=== PATIENT | female | born 1985 | race Caucasian/White ===

== ENCOUNTER 2018-01-08 09:17 | Inpatient (IN) ==
--- OUTSIDE RECORDS SUMMARY | 2018-01-08 09:27 | External Medical Summary | Continuity of Care Document ---
:1985 Author Organization [facility] Address [address] [place], [place] [id number] Phone Care Team Providers Name Role Phone Abhi Burroughs MD Unavailable Unavailable Allergies, Adverse Reactions, Alerts Substance Reaction Severity Status Penicillins Hives Unknown Active MEPERIDINE HCL Hives Unknown Active Medications Medication Instructions Dosage Effective Dates Status Comments (start - stop) Rhophylac 1,500 unit - Active (300 mcg)/2 mL injection syringe ferrous sulfate 325 take 1 tablet by 325 MG - Active mg (65 mg iron) ORAL route 2 times tablet every day Vitamin Tab take 1 tablet by Not Available - Active oral route every day levothyroxine 50 mcg take 1 tablet by 50 MCG - Active tablet oral route every day Problems Condition Effective Dates (start - stop) Clinical Status Encntr screen for infections w sexl - mode of transmiss Encounter for screening for oth - infec/parastc diseases Encounter for suprvsn of normal - , first trimester Encounter For Other Specified - Screening 9 weeks gestation of - Endo, nutritional and metab diseases - comp preg, third tri Encounter for suprvsn of normal - , third trimester 28 weeks gestation of - Type O blood, Rh negative - Endo, nutritional and metab diseases - comp preg, second tri Encounter For Screening For - Malformations 20 weeks gestation of - Endo, nutritional and metab diseases - comp preg, second tri Encounter for suprvsn of normal - , second trimester 24 weeks gestation of - 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) w/o abn findings Pap Smear Screening, Cervix Personal history of endo, nutritional and metabolic disease Personal history of endo, nutritional and metabolic disease Encounter for suprvsn of normal - , second trimester 14 weeks gestation of - Encounter for suprvsn of normal - , second trimester 17 weeks gestation of - Encounter for suprvsn of normal - , second trimester 20 weeks gestation of - Encounter for suprvsn of normal - , third trimester 31 weeks gestation of - Irregular Menses - Active Active Procedures Procedure Date Unknown Results Test Name Date and Time Measure Units Reference Range Abnormal Flag Comments Unknown Advance Directives Directive Yes / No Effective Date File Name Unknown Encounters Encounter Practice Location Reason(s) Diagnoses Date Provider Care Team Description For Visit Members Juancarlos Huitron Encounter for Tavo-2 Madhav Referring In Womens suprvsn of normal 6-201 [place]. 700 Provider: [facility], , third 8 Medical [facility] Box [email or web address] weeks [facility], 1522, gestation of Dr [place] [id number] [place], 120, Hospital [place], Dr Tomy, [id number], [place], [facility] [id number] [place], [address]. tel: , [place]. tel: tel: [phone] Juancarlos Huitron Tavo-1 Madhav In Womens 2-201 [facility] 700 [facility], 8 Medical PO Box Center 1522, Sonu [place], 120, [place], [place], [id number], [place], [place] [id number] tel: , [place]. [id number] tel: [phone] [facility], nutritional Tavo-0 Madhav Referring In Womens and metab 7-201 [place]. 700 Provider: [facility], diseases comp 8 Medical Abhi PO Box preg, third Center [facility], 1522, [facility] for Dr Sonu 101 [place], [facility] normal 120, [facility], , third Dr Tomy, [id number], [id number] weeks [place], [place], [place] [id number] [place], [address]. tel: pregnancyType O , [place]. tel: blood, Rh tel: negative [phone] [facility], nutritional May-1 Madhav Referring In Womens and metab 0-201 [place]. 700 Provider: Health [facility], diseases comp 8 Medical Abhi PO Box preg, second [facility], 1522, [facility] [address] [place], [facility] normal 120, [facility], , second Dr Tomy, , [id number] weeks [place], [place], [place] [id number] [place], [address]. tel: , [place]. tel: tel: [phone] Juancarlos Huitron Encounter for Apr-1 Madhav Referring In Womens suprvsn of normal 1-201 [place]. 700 Provider: [facility], , second 8 Medical Abhi PO Box [id number] weeks [facility], 1522, gestation of Dr [address] [place], 120, [facility], Dr T[place], , [place], [place], [place] [id number] [place], [address]. tel: , [place]. tel: tel: [phone] [facility], nutritional Apr-1 Madhav Referring In Womens Ultrasound and metab 1-201 [place]. 700 Provider: [facility], diseases comp 8 Medical Abhi PO Box preg, second [facility], 1522, [facility] Sonu [address] [place], 120, [facility], Screening For Dr Tomy, [id number], [id number] [place], [place], [place] [id number] [place], [address]. tel: of , [place]. tel: tel: [phone] Juancarlos Huitron Encounter for Mar-2 Madhav Referring In Womens suprvsn of normal 0-201 [place]. 700 Provider: Jv CONDE, , second 8 Medical Abhi Mathur [id number] weeks Cameron Manjeet , 1522, gestation of Sonu [place] 1010 [place], 120, Hospital [place], Dr Tomy, [id number], [facility] [id number] [place], [address]. tel: , [place]. tel: tel: [phone] Juancarlos Huitron Encounter for Feb-2 Madhav Referring In Womens suprvsn of normal 7-201 [place]. 700 Provider: Jv CONDE, , second 8 Medical Abhi Mathur [id number] weeks Cameron Manjeet Orozco, 1522, gestation of Sonu [place] 1010 [place], 120, Hospital [place], Dr Tomy, [id number], [facility] [id number] [place], [address]. tel: , [place]. tel: tel: [phone] Juancarlos Huitron Encntr screen for Petros-2 Madhav Referring In Womens infections w sexl 5-201 [place]. 700 Provider: Jv CONDE, mode of 8 Medical Abhi Mathur transmissEncounte Cameron Manjeet Orozco, 1522, r for screening Sonu [place], for oth 120, [facility], infec/parastc Dr Tomy, , diseases[facility], [facility] for suprvsn [place] [id number] [place], [address]. tel: normal , , [place]. 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 Provider: Jv CONDE, (routine) w/o abn 6 700 Abhi Mathur findingsPap Smear Medical Manjeet Orozco, 1522, Screening, [place] [id number] Sj Jaylene [place], [facility], history of endo, 120, Dr, [id number], nutritional and [place], [place], [address]. tel: diseasePersonal tel: history of endo, , [place]. [id number] nutritional and tel: metabolic disease [phone] Associates [facility] May-2 Madhav Referring In Womens 0-201 [place]. 700 Provider: Health AMAYA, 5 [facility] Madhav Santiago, 1522, , [address], 120, Medical [facility] [id number], [place], [facility] 120, [place] [id number] [place], tel: , [place]. [place], tel:[phone]. [id number] tel:[phone] Juancarlos Huitron Mar-2 Madhav Referring In Womens 6-201 [place]. 700 Provider: Health AMAYA, 5 [facility] Madhav Santiago, 1522, , [address], 120, Medical [place] [facility] [id number], [place], [facility] 120, [place] [id number] [place], tel: , [place]. [place], tel:[phone]. [phone] tel:[phone] Juancarlos Huitron Nov-1 Madhav Referring In Womens 7-201 [place]. 700 Provider: Health AMAYA, 4 [facility] Danielito Norton2, , [place] 6[address] [place], 120, [facility], Dr Tomy, [id number], [place], [place], [id number] [place], [address]. tel: , [place]. tel: tel: [phone] Juancarlos Huitron May-0 Regla In Womens 7-201 [facility], [address] [place] [address] 1522, Center [place], , [facility] [place], 120, [id number], [place], [place], tel:[phone] , [place]. tel: [phone] Juancarlos Huitron Sep-2 Regla In Womens 2-200 Kathryn. [facility], 8 700 [facility] 1522, Cameron Dr Sj [facility], 120, [id number], [place], [place], tel:[phone] 560[address] , . tel:[phone] Family History Family Member Diagnosis Age At Onset No family history of Cardiovascular Disease No family history of Thyroid Disorder Paternal Grandmother Osteoporosis No family history of Lung Disease No family history of Breast Cancer Paternal Grandfather Stroke Close relative Cancer, breast No family history of Epilepsy No family history of Kidney Problems No family history of Diabetes No family history of Ovarian Cancer No family history of Colon Cancer No family history of Hypertension Immunizations Vaccine Date Status Comments Rhophylac completed Source: New Immunization Record Influenza, injectable, completed Source: Other Provider quadrivalent, preservative free, 3 yrs or older Tdap completed Source: New Immunization Record Rhophylac completed Source: New Immunization Record Influenza, seasonal, injectable, completed Source: Other Provider preservative free, 3 yrs or older Payers Payer name Insurance type Covered democrat ID Authorization(s) [facility] [id number] [facility] [id number] [facility] [id number] [facility] [id number] Social History Type Description Quantity Date Captured Unknown Vital Signs Date / Height Weight BMI Pulse Blood Temperature Respiratory Body Head BMI Time: Rate Pressure Rate Surface Circumference percentile Area Unknown Chief Complaint And Reason For Visit Unknown Chief Complaint And Reason For Visit Reason For Referral Reason For Referral Unknown Plan Of Care Date Type Action Status Appointment Brittney Smith BOOKED Future Order: Radiology Order Complete OB Ultrasound > 14 Weeks Ordered ([id number]) Future Order: Lab Order Pap Smear With HPV Reflex If ASCUS Ordered ([id number]) Date Type Problem Goal Intervention Status Start Date Unknown. History Of Present Illness Encounter Date Complaint History Of Present Illness This patient has no known history of present illness Functional Status Encounter Date Functional Assessment Cognitive Assessment Unknown Medications Administered Medication Instructions Dosage Effective Dates (start - stop) Status Comments Drug Treatment Unknown Instructions Date Instruction Additional Information HIV and other routine tests risk factors identified by history anticipated course of care nutrition and weight gain counseling, special diet toxoplasmosis precautions (cats / raw meat) sexual activity exercise indications for ultrasound influenza vaccine environmental / work hazards travel use of any medications (including supplements, vitamins, herbs, OTC drugs) domestic violence seat belt use childbirth classes / hospital facilities hospital registration genetic testing anticipated course of care HIV and other routine tests risk factors identified by history nutrition and weight gain counseling, special diet toxoplasmosis precautions (cats / raw meat) sexual activity exercise indications for ultrasound influenza vaccine environmental / work hazards travel tobacco (ask, advise, assess, assist and arrange) alcohol illicit / recreational drugs use of any medications (including supplements, vitamins, herbs, OTC drugs) smoking counseling domestic violence seat belt use genetic testing
--- OUTSIDE RECORDS SUMMARY | 2018-01-08 09:27 | External Medical Summary | Continuity of Care Document ---
:1985 Author Organization [facility] Address [address] [place], [place] [id number] Phone Care Team Providers Name Role Phone Abhi Burroughs MD Unavailable Unavailable Allergies, Adverse Reactions, Alerts Substance Reaction Severity Status Penicillins Hives Unknown Active MEPERIDINE HCL Hives Unknown Active Medications Medication Instructions Dosage Effective Dates Status Comments (start - stop) Vitamin Tab take 1 tablet by Not Available - Active oral route every day levothyroxine 50 mcg take 1 tablet by 50 MCG - Active tablet oral route every day Problems Condition Effective Dates (start - stop) Clinical Status Encounter for suprvsn of normal - , second trimester 14 weeks gestation of - Encntr screen for infections w sexl - mode of transmiss Encounter for screening for oth - infec/parastc diseases Encounter for suprvsn of normal - , first trimester Encounter For Other Specified - Screening 9 weeks gestation of - 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) w/o abn findings Pap Smear Screening, Cervix Personal history of endo, nutritional and metabolic disease Personal history of endo, nutritional and metabolic disease Irregular Menses - Active Active Procedures Procedure Date OB Visit No Charge Results Test Name Date and Time Measure Units Reference Range Abnormal Flag Comments Unknown Advance Directives Directive Yes / No Effective Date File Name Unknown Encounters Encounter Practice Location Reason(s) Diagnoses Date Provider Care Team Description For Visit Members Juancarlos Huitron Encounter for Jun- Madhav Referring In Womens suprvsn of normal 7-201 [place]. 700 Provider: Jv CONDE, , second 8 Medical Abhi PO Box [id number] weeks Center Manjeet Orozco, 1522, gestation of Dr, [address], 120, Hospital [place], Dr Tomy, [id number], [facility] [id number] [place], [address]. tel: , [place]. tel: tel: [phone] Juancarlos Huitron Encntr screen for May- Madhav Referring In Womens infections w sexl 5-201 [place]. 700 Provider: Jv CONDE, mode of 8 Medical Abhi PO Box transmissEncounter [place] Manjeet M, 1522, for screening for , [place] [address] [place], oth infec/parastc 120, [facility], diseasesEncanaheim [facility] [place], , for suprvsn of [place], [place], normal , [id number] [place], [address]. tel: first , [place]. tel: trimesterEncounter tel: For Other Specified [id number] Screening9 weeks gestation of Juancarlos Crowr for electric meter setter exam September- Jara Referring In Womens (general) (routine) 2-201 [facility]. Provider: Jv CONDE, w/o abn findingsPap 6 700 [place] PO Box Smear Screening, Medical Manjeet M, 1522, [facility] 1010 [place], history of endo, , [facility], nutritional and [facility], , metabolic [place], [place], [address]. tel: history of endo, [phone] tel: nutritional and , [place]. [id number] metabolic disease tel: [phone] Juancarlos Huitron September-2 Madhav Referring In Womens 0-201 [place]. 700 Provider: Jv CONDE, 5 [facility] Box [place] Madhav Santiago, 1522, , Sonu 700 [place], 120, Medical [facility] [id number], [place], [facility] 120, [place] [id number] [place], tel: , [place]. [place], tel: [phone]. [id number] tel:[phone] Juancarlos Huitron Mar-2 Madhav Referring In Womens 6-201 [place]. 700 Provider: Health PA, 5 [facility] Madhav Santiago, 1522, , Sonu 700 [place], 120, Medical [facility] [id number], [place], [facility] 120, [place] [id number] [place], tel: , . [place], tel: [phone]. [id number] tel:[phone] Juancarlos Huitron Nov-1 Madhav Referring In Womens 7-201 [place]. 700 Provider: Health PA, 4 [facility] Manjeet Orozco 1522, , [facility] 1010 [place], [facility], [facility], Dr Tomy, [id number], [facility] [id number] [place], [address]. tel:+ , [place]. tel: tel: [phone] Juancarlos Huitron May-0 Regla In Womens 7-201 [facility], [address] [place], [place] [address], [address], [facility], 120, [id number], [facility] [place], tel:[phone] , [place]. tel: [phone] Juancarlos Huitron Sep-2 Regla In Womens 2-200 [facility], 8 700 [facility] 1522, [address], [facility] [place], 120, [id number], [facility] [place], tel:[phone] , [place]. tel: [phone] Family History Family Member Diagnosis Age At [...] of Hypertension Immunizations Vaccine Date Status Comments Influenza, injectable, completed Source: Other Provider quadrivalent, preservative free, 3 yrs or older Tdap completed Source: New Immunization Record Rhophylac completed Source: New Immunization Record Influenza, seasonal, injectable, completed Source: Other Provider preservative free, 3 yrs or older Payers Payer name Insurance type Covered constitution party ID Authorization(s) [facility] [id number] [facility] [id number] [facility] [id number] Social History Type Description Quantity Date Captured Alcohol Use Details No Caffeine Use Details Unknown Tobacco Use Status Unknown Smoking Status Never smoker Vital Signs Date / Height Weight BMI Pulse Blood Temperature Respiratory Body Head BMI Time: Rate Pressure Rate Surface Circumference percentile Area 142.10 20.4 107/2018 lbs 5 mm[Hg] 4:35 kg/m PM eter (2) Chief Complaint And Reason For Visit Unknown Chief Complaint And Reason For Visit Reason For Referral Reason For Referral Unknown Plan Of Care Date Type Action Status Future Order: Lab Order Pap Smear With [...]
--- OUTSIDE RECORDS SUMMARY | 2018-01-08 09:27 | External Medical Summary | Continuity of Care Document ---
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 700 Provider: Health PA, diseases comp 8 Medical Abhi PO Box [facility][note 3], [facility] Manjeet Orozco, 1522, [facility] for , Sonu [address] [place], suprvsn of [address], , third Dr Tomy, [id number], [id number] [facility] [place] [id number] [place], [address]. tel:[phone] , [place]. tel:[phone] tel: [phone] Juancarlos [place] Encounter for Tavo-2 Madhav Referring In Womens suprvsn of normal 6-201 Daniel. 700 Provider: Health PA, , third 8 Medical Abhi PO Box [email or web address] weeks Center [facility], 1522, gestation of Dr 1009 Sj, 120, Hospital [place], Dr Tomy, [id number], [place], [place], [id number] [place], [address]. tel: , [place]. tel: tel: [phone] Juancarlos [place] Endo, nutritional Tavo-0 Madhav Referring In Womens and metab 7-201 Daniel. 700 Provider: Health PA, diseases comp 8 Medical Abhi PO Box preg, third Center [facility], 1522, [facility] for Dr 1009 Sj, suprvsn of normal 120, [facility], , third Dr Tomy, , [email or web address] weeks [facility], gestation [place] [id number] [place], [address]. tel: pregnancyType O , [place]. tel: blood, Rh tel: negative [phone] Juancarlos [place] Endo, nutritional May-1 Madhav Referring In Womens and metab 0-201 Daniel. 700 Provider: Health PA, diseases comp 8 Medical Abhi PO Box preg, second Center [facility], 1522, triEncount[address] Sj, suprvsn of normal 120, [facility], , second Dr Tomy, , [email or web address] weeks [place], [place], [place] [id number] [place], [address]. tel: , [place]. tel: tel: [phone] Juancarlos [place] Encounter for Apr-1 Madhav Referring In Womens suprvsn of normal 1-201 Daniel. 700 Provider: Health PA, , second 8 Medical Abhi PO Box [id number] weeks Center [facility], 1522, gestation of Dr 1009 Sj, 120, [facility], Dr Tomy, [id number], [place], [place], [id number] [place], [address]. tel: , [place]. tel: tel: [phone] Juancarlos [place] Endo, nutritional Apr-1 Madhav Referring In Womens Ultrasound and metab 1-201 [place]. 700 Provider: Jv CONDE, diseases comp 8 Medical Abhi PO Box preg, second Center Manjeet M, 1522, triEncounter For Sonu Hayden, 120, Hospital [place], Screening For Dr Tomy, [id number], [id number] [place], [place], [place] [id number] [place], [address]. tel: of , [place]. tel: tel: [phone] Juancarlos [place]ron Encounter for Mar-2 Madhav Referring In Womens suprvsn of normal 0-201 [place]. 700 Provider: Jv CONDE, , second 8 Medical Abhi PO Box [id number] weeks Center [facility], 1522, gestation of Sonu Hayden, 120, [facility], Dr Tomy, , [place], [place], [id number] [place], [address]. tel: , [place]. tel: tel: [phone] Juancarlos [place]ron Encounter for Feb-2 Madhav Referring In Womens suprvsn of normal 7-201 [place]. 700 Provider: Jv CONDE, , second 8 Medical Abhi PO Box [email or web address] weeks Center [facility], 1522, gestation of Sonu Hayden, 120, Hospital DUY, Dr Tomy, , [place], [place], [id number] [place], [address]. tel: , [place]. tel: tel: [phone] Juancarlos H[place]ron Encntr screen for Petros-2 Madhav Referring In Womens infections w sexl 5-201 [place]. 700 Provider: Jv CONDE, mode of 8 Medical Abhi PO Box transmissEncounte Center [facility], 1522, r for screening Sonu Hayden, for oth 120, [facility], infec/parastc Dr Tomy, , [facility], [place], [place] suprvs[place] [id number] [place], [address]. tel: normal , , [place]. 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 Provider: Jv CONDE, (routine) w/o abn 6 700 [facility] findingsPap Smear Medical Manjeet Orozco, 1522, Screening, Center 1010 Sj CervixSimone Hayden, [facility], history of endo, 120, , [id number], nutritional and Tomy [place], [place], [address]. tel: diseasePersonal tel: history of endo, , [place]. [id number] nutritional and tel: metabolic disease [phone] Juancarlos [place] September-2 Madhav Referring In Womens 0-201 [place]. 700 Provider: Jv CONDE, 5 [facility] Madhav Santiago, 1522, , [address], 120, Medical Tomy [facility] [id number], [place], [place] 120, [place] [id number] Tomy, tel: , [place]. [place], tel:[phone]. [phone] tel:[phone] Juancarlos [place] Jul-2 Madhav Referring In Womens 6-201 [place]. 700 Provider: Jv CONDE, 5 [facility] Madhav Santiago, 1522, , [address], 120, Medical Tomy [place] [id number], [place], [place] 120, [place] [id number] Tomy, tel: , . [place], tel: [phone]. [phone] tel:[phone] Juancarlos [place]ron Mar- Madhav Referring In Womens 7-201 [place]. 700 Provider: Jv CONDE, 4 [facility] Center Manjeet Orozco, 1522, , [place] [address] [place], 120, Hospital DUY, Dr Tomy, [id number], [place], [place], [id number] [place], [address]. tel: , [place]. tel: tel: [phone] Associates [facility] May-0 Regla In Womens 7-201 Kathryn. Critical [facility] hospital, 2 700 [facility] 15[address], [address] Sj, [place], 120, [id number], [facility] [place], tel: [phone] , [place]. tel: [phone] Associates T[facility] Sep-2 Regla In Womens 2-200 Kathryn. Critical access hospital, 8 700 PO [facility] 1522, [address] Sj, [place], 120, [id number], [facility] [place], tel: [phone] , . tel: [phone] Family History Family Member Diagnosis Age At [...] older Payers Payer name Insurance type Covered alliance party ID Authorization(s) [facility] [id number] [facility] [id number] [facility] [id number] [facility] [id number] Social History Type Description Quantity Date Captured Alcohol Use Details No Caffeine Use Details Unknown Tobacco Use Status Unknown Smoking Status Never smoker Vital Signs Date / Height Weight BMI Pulse Blood Temperature Respiratory Body Head BMI Time: Rate Pressure Rate Surface Circumference percentile Area 160.50 23.0 111/ lbs 9 mm[Hg] 3:22 kg/m PM eter (2) Chief Complaint And Reason For Visit Unknown Chief Complaint And Reason For Visit Reason For Referral Reason For Referral Unknown Plan Of Care Date Type Action Status Appointment Brittney Smith BOOKED Appointment Brittney Smith BOOKED Future Order: Radiology Order Complete OB Ultrasound > 14 Weeks Ordered ([id number]) Future Order: Lab Order Pap Smear With [...]
--- OUTSIDE RECORDS SUMMARY | 2018-01-08 09:27 | External Medical Summary | Continuity of Care Document ---
:1985 Author Organization [facility] Address [address] [place], [place] [address] Phone Care Team Providers Name Role Phone Abhi Burroughs MD Unavailable Unavailable Allergies, Adverse Reactions, Alerts Substance Reaction Severity Status Penicillins Hives Unknown Active MEPERIDINE HCL Hives Unknown Active Medications Medication Instructions Dosage Effective Dates Status Comments (start - stop) levothyroxine 50 mcg take 1 tablet by 50 MCG - Active tablet oral route every day Rhophylac 1,500 unit - Active (300 mcg)/2 [...] Effective Dates (start - stop) Clinical Status Endo, nutritional and metab diseases - comp preg, third tri Encounter for suprvsn of normal - , third trimester 33 weeks gestation of - Encntr screen for [...] metab diseases - comp preg, third tri 35 weeks gestation of - Encntr 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 [address] [place] [address], Medical Box Center 1522, Sonu Hayden, 120, [place], T[place], [id number], [place], [id number] tel: , [place]. tel: [phone] Juancarlos H[place]ron Encounter for Jayjay-2 Madhav Referring In Womens suprvsn of normal 6-201 [place]. 700 Provider: Health PA, , third 8 Medical Abhi PO Box trimesterEncounte Center [facility], 1522, r For Sonu Hayden, Screening For 120, Hospital [place], Streptococcus B35 Dr Tomy, , weeks gestation [place], [place], [place] [id number] [place], [address]. tel: , [place]. tel: tel: [phone] Juancarlos Carr, nutritional Jayjay-2 Madhav Referring In Womens Ultrasound and metab 6-201 [place]. 700 Provider: Health PA, diseases comp 8 Medical Abhi PO Box preg, third tri35 Center [facility], 1522, weeks gestation Sonu Hayden [place], of 120, Hospital DYU, Dr Tomy, , [place], [place], [id number] [place], [address]. tel: , [place]. tel: tel: [phone] Juancarlos Carr, nutritional Jayjay-1 Madhav Referring In Womens and metab 1-201 [place]. 700 Provider: Health PA, diseases comp 8 Medical Abhi PO Box preg, third Center [facility], 1522, triEncounter for Sonu Hayden 1009 [place], suprvsn of normal 120, [facility], , third Dr Tomy, , [email or web address] weeks [place], [place], [place] [id number] [place], [address]. tel: , [place]. tel: tel: [phone] Juancarlos Huitron Encounter for Tavo-2 Madhav Referring In Womens suprvsn of normal 6-201 [place]. 700 Provider: Health PA, , third 8 Medical Abhi PO Box weeks Center [facility], 1522, gestation of Sonu Hayden 101 [place], 120, Hospital DUY, Dr Tomy, [id number], [place], [facility] [id number] [place], [address]. tel: , [place]. tel: tel: [phone] Juancarlos Carr, nutritional Tavo-0 Madhav Referring In Womens and metab 7-201 Daniel. 700 Provider: Health PA, diseases comp 8 Medical Abhi PO Box preg, third Center [facility], 1522, [facility] Sonu 1010 Sj [facility] of normal 120, [facility], , third Dr Tomy, [id number], [email or web address] weeks [facility] gestation [place] [id number] [place], [address]. tel: pregnancyType O , [place]. tel: blood, Rh tel: negative [phone] Juancarlos Carr, nutritional May-1 Madhav Referring In Womens and metab 0-201 Daniel. 700 Provider: Health AMAYA, diseases comp 8 Medical Abhi PO Box preg, second Center [facility], 1522, [facility] Dr Sonu 101 Sj [facility] of normal 120, [facility], , second Dr Tomy, [id number], weeks [facility] gestation [place] [id number] [place], [address]. tel: , [place]. tel: tel: [phone] Juancarlos Huitron Encounter for Apr-1 Madhav Referring In Womens suprvsn of normal 1-201 Daniel. 700 Provider: Jv CONDE, , second 8 Medical Abhi PO Box [id number] weeks [facility], 1522, gestation of Dr Sonu 101 [place], 120, [facility], Dr Tomy, [id number], [facility] [id number] [place], [address]. tel: , [place]. tel: tel: [phone] Juancarlos H[place] Endo, nutritional Apr-1 Madhav Referring In Womens Ultrasound and metab 1-201 Daniel. 700 Provider: Health AMAYA, diseases comp 8 Medical Abhi PO Box preg, second Center [facility], 1522, [facility] Yancey Dr Sonu 1010 [place], 120, [facility], Screening For Dr Tomy, [id number], [id number] [place], [place], [place] [id number] [place], [address]. tel: of , [place]. tel: tel: [phone] Juancarlos Huitron Encounter for Mar-2 Madhav Referring In Womens suprvsn of normal 0-201 Daniel. 700 Provider: Jv CONDE, , second 8 Medical Abhi Mathur weeks Center Manjeet Orozco, 1522, gestation of Sonu Hayden 101 [place], 120, [facility], Dr Tomy, [id number], [place], [place], [id number] [place], [address]. tel: , [place]. tel: tel: [phone] Juancarlos Huitron Encounter for Feb-2 Madhav Referring In Womens suprvsn of normal 7-201 Daniel. 700 Provider: Jv CONDE, , second 8 Medical Abhi Mathur [id number] weeks [place] Manjeet Orozco, 1522, gestation of Sonu Hayden 1009 [place], 120, [facility], Dr Tomy, [id number], [place], [place], [id number] [place], [address]. tel: , [place]. tel: tel: [phone] Juancarlos Huitron Encntr screen for Petros-2 Madhav Referring In Womens infections w sexl 5-201 Daniel. 700 Provider: Jv CONDE, mode of 8 [facility] Abhi Mathur transmissEncounte [place] Manjeet Orozco, 1522, r for screening Sonu Hayden Eusebia Gustafson, for oth 120, [facility], infec/parastc Dr Tomy, [id number], [facility], [facility] for suprvs[place] [id number] [place], [address]. tel: normal , , [place]. tel: first tel: trimesterEncounte [phone] r For Other Specified Screening9 weeks gestation of Juancarlos Huitron Encntr for chute tender May-0 Jara Referring In Womens exam (general) 2-201 Marianne. Provider: Health AMAYA, (routine) w/o abn 6 700 [facility] findingsPap Smear Medical Manjeet Orozco, 1522, Screening, Center [address], [facility], history of endo, 120, Dr, [id number], nutritional [place] Tomy [place], [place], [address]. tel: diseasePersonal [phone] tel: history of endo, , [place]. [id number] nutritional and tel: metabolic disease [phone] Associates Tomy May-2 Madhav Referring In Womens 0-201 [place]. 700 Provider: Jv CONDE, 5 [facility] Madhav Santiago, 1522, , [address], 120, [facility] [id number], [place], [place] [address], [id number] Tomy, tel: , [place]. [place], tel: [phone]. [phone] tel:[phone] Associates Tomy Mar-2 Madhav Referring In Womens 6-201 [place]. 700 Provider: Jv CONDE, 5 [facility] Madhav Santiago, 1522, , [address], 120, [facility] [id number], [place], [place] [address], [place] [id number] Tomy, tel: , . [place], tel: [phone]. [phone] tel:[phone] Juancarlos Huitron Nov-1 Madhav Referring In Womens 7-201 [place]. 700 Provider: Health AMAYA, 4 [facility] Manjeet Orozco, 1522, , [place] [address] [place], 120, Hospital DUY, Dr Tomy, [id number], [place], [place], [id number] [place], [address]. tel: , [place]. tel: tel: [phone] Juancarlos Huitron May-0 Regla In Womens 7-201 Kathryn. Health AMAYA, 2 700 [facility] 1522, [place] Dr Sj, [facility], 120, [id number] Mccord, [facility], tel:[phone] , [place]. tel: [phone] Associates Tomy Sep-2 [facility] In Womens 2-200 [facility], 8 700 PO [facility] 1522, [place] Dr Sj, [facility] [place], 120, [id number], [place], [place], tel:[phone] 172572 , . tel: [phone] Family History Family Member Diagnosis Age At [...] of Hypertension Immunizations Vaccine Date Status Comments Tdap completed Source: New Immunization Record Rhophylac completed Source: New Immunization Record Influenza, injectable, completed Source: Other Provider quadrivalent, preservative free, 3 yrs or older Tdap completed Source: New Immunization Record Rhophylac completed Source: New Immunization Record Influenza, seasonal, injectable, completed Source: Other Provider preservative free, 3 yrs or older Payers Payer name Insurance type Covered constitution party ID Authorization(s) [facility] [id number] [facility] BL [id number] [facility] BL [id number] [facility] BL [id number] [facility] BL [id number] Social History Type Description Quantity Date Captured Alcohol Use Details No Caffeine Use Details Unknown Tobacco Use Status Unknown Smoking Status Never smoker Vital Signs Date / Height Weight BMI Pulse Blood Temperature Respiratory Body Head BMI Time: Rate Pressure Rate Surface Circumference percentile Area 162.60 23.3 109/70 -2018 lbs 9 mm[Hg] 3:27 kg/m PM eter (2) 0 2018 9 3:27 kg/m PM eter (2) Chief Complaint And Reason For Visit Unknown Chief Complaint And Reason For Visit Reason For Referral Reason For Referral Unknown Plan Of Care Date Type Action Status Appointment Brittney Smith BOOKED Future Order: Radiology Order Complete OB Ultrasound > 14 Weeks Ordered ([id number]) Future Order: Radiology Order Ultrasound OB Follow-up ([id number]) Ordered Future Order: Lab Order Pap Smear With [...]
--- OUTSIDE RECORDS SUMMARY | 2018-01-08 09:28 | External Medical Summary | Continuity of Care Document ---
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) - (routine) w/o abn findings Pap Smear Screening, Cervix Personal history of endo, nutritional and metabolic disease Personal history of endo, nutritional and metabolic disease Encounter for suprvsn of normal - , second trimester 14 weeks gestation of - Irregular Menses - Active Active Procedures Procedure Date OB Visit No Charge Results Test Name Date and Time Measure Units Reference Range Abnormal Flag Comments Unknown Advance Directives Directive Yes / No Effective Date File Name Unknown Encounters Encounter Practice Location Reason(s) Diagnoses Date Provider Care Team Description For Visit Members Juancarlos Huitron Encounter for Jul- Madhav Referring In Womens suprvsn of normal 0-201 Daniel. 700 Provider: Jv CONDE, , second 8 Medical Abhi Mathur [id number] [place] Manjeet Orozco, 1522, gestation of Dr Sonu 1010 [place], 120, [facility], Dr Tomy, [id number], [facility] [id number] [place], [address]. tel:+ , [place]. tel: tel: [phone] Juancarlos Huitron Encounter for Jun- Madhav Referring In Womens suprvsn of normal 7-201 Daniel. 700 Provider: Jv CONDE, , second 8 Medical Abhi ROBERTO Box [email or web address] [place] Manjeet Orozco, 1522, gestation of , Sonu [address] [place], 120, [facility], Dr Tomy, [id number], [facility] [id number] [place], [address]. tel: , [place]. tel: tel:[phone] Juancarlos Huitron Encntr screen for Petros-2 Madhav Referring In Womens infections w sexl 5-201 Daniel. 700 Provider: Jv CONDE, mode of 8 Medical Abhi PO [facility] Manjeet Orozco, 1522, for screening for Dr Sonu 1010 [place], [facility] infec/parastc 120, [facility], [facility] Dr Tomy, [id number], for suprvsn of [facility] normal , [id number] [place], [address]. tel: first , [place]. tel: [facility] tel: [phone] For Other Specified [id number] Screening9 weeks gestation of Juancarlos Huitron Encntr for marketing assistant manager exam September- Jara Referring In Womens (general) (routine) 2-201 Marianne. Provider: Jv CONDE, w/o abn findingsPap 6 700 [facility] Smear Screening, Medical Manjeet Orozco, 1522, CervixPersonal Center 1010 [place], history of gay, , [facility], nutritional and 120, Dr, [id number], [facility] [place], [place], [address]. tel:+ history of endo, tel: nutritional and , [place]. [id number] metabolic disease tel: [phone] Juancarlos [place] May-2 Madhav Referring In Womens 0-201 [place]. 700 Provider: Jv CONDE, 5 [facility] Madhav Santiago, 1522, , [address], [facility], Medical Tomy [facility] [id number], [place], [place] [address], [id number] Tomy, tel: , [place]. [place], tel: [phone]. [phone] tel:[phone] Juancarlos H[place]ron Mar-2 Madhav Referring In Womens 6-201 [place]. 700 Provider: Jv CONDE, 5 [facility] Madhav Santiago, 1522, , [address], [facility], Medical Tomy [facility] [id number], [place], [place] [address], [id number] Tomy, tel: , . [place], tel: [phone]. [phone] tel:[phone] Juancarlos H[place]ron Nov-1 Madhav Referring In Womens 7-201 [place]. 700 Provider: Jv CONDE, 4 [facility] Manjeet Orozco, 1522, Dr, [place] 683950 [place], [facility], Hospital Tomy G[address], [id number], [place], [place], [id number] [place], [address]. tel: , [place]. tel: tel: [phone] Juancarlos [place] May-0 Regla In Womens 7-201 Kathryn. Health AMAYA, [address] [place] [address] [address], [place] [address] Sj, [facility], 120, [id number] Mccord, [facility], tel:[phone] , [place]. tel: [phone] Juancarlos [place] Sep- Regla In Womens 2-200 [facility], 8 700 PO [facility] 1522, [place] [address] [place] Dr Sj, [facility], 120, [id number], [place], [place], tel:[phone] , . tel: [phone] Family History Family Member Diagnosis Age At [...] older Payers Payer name Insurance type Covered libertarian ID Authorization(s) [facility] [id number] [facility] [id number] [facility] [id number] Social History Type Description Quantity Date Captured Alcohol Use Details No Caffeine Use Details Unknown Tobacco Use Status Unknown Smoking Status Never smoker Vital Signs Date / Height Weight BMI Pulse Blood Temperature Respiratory Body Head BMI Time: Rate Pressure Rate Surface Circumference percentile Area 145.60 20.9 111/70 lbs 5 mm[Hg] 4:43 kg/m PM eter (2) Chief Complaint And Reason For Visit Unknown Chief Complaint And Reason For Visit Reason For Referral Reason For Referral Unknown Plan Of Care Date Type Action Status Appointment Brittney Smith BOOKED Appointment Brittney Smith BOOKED Future Order: Lab Order Pap Smear With [...]
--- OUTSIDE RECORDS SUMMARY | 2018-01-08 09:28 | External Medical Summary | Continuity of Care Document ---
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 exam (general) - (routine) w/o abn findings Pap Smear Screening, Cervix Personal history of endo, nutritional and metabolic disease Personal history of endo, nutritional and metabolic disease Irregular Menses - Active Active Procedures Procedure Date Initial OB Visit No Charge - BLACKSMITH ASSISTANT Cult, bactr, larry colonycnt, urine Infct antign, chlamydia trac, ampl OB Panel With An HIV Neisseria Gonorrhoeae, Amplification Venpnctr fngr/heel/ear stick routne Results Test Name Date and Time Measure Units Reference Range Abnormal Flag Comments Panel Description: OBSTETRIC PANEL WHITE BLOOD CELL 10.4 Thousand/uL 3.8-10.8 N COUNT 15:16:00 RED BLOOD CELL 3.73 Million/uL 3.80-5.10 L COUNT 15:16:00 HEMOGLOBIN 11.9 g/dL 11.7-15.5 N 15:16:00 HEMATOCRIT 34.2 % 35.0-45.0 L 15:16:00 MCV 91.7 fL 80.0-100.0 N 15:16:00 MCH 31.9 pg 27.0-33.0 N 15:16:00 MCHC 34.8 g/dL 32.0-36.0 N 15:16:00 RDW 11.3 % 11.0-15.0 N 15:16:00 PLATELET COUNT 312 Thousand/uL 140-400 N 15:16:00 MPV 11.7 fL 7.5-12.5 N 15:16:00 ABSOLUTE 7800 cells/uL 2118-3290 N NEUTROPHILS 15:16:00 ABSOLUTE 1810 cells/uL 850-3900 N LYMPHOCYTES 15:16:00 ABSOLUTE 686 cells/uL 200-950 N MONOCYTES 15:16:00 ABSOLUTE 73 cells/uL 15-500 N EOSINOPHILS 15:16:00 ABSOLUTE 31 cells/uL 0-200 N BASOPHILS 15:16:00 NEUTROPHILS 75 % N 15:16:00 LYMPHOCYTES 17.4 % N 15:16:00 MONOCYTES 6.6 % N 15:16:00 EOSINOPHILS 0.7 % N 15:16:00 BASOPHILS 0.3 % N 15:16:00 ANTIBODY SCREEN, NO ANTIBODIES N RBC W/REFL ID, 15:16:00 DETECTED Reference range TITER AND AG No antibodies detected This assay is a screening test for the detection of red blood cell antibodies. The test is not to be used for pretransfusion screening or for the medical management of an alloimmunized . ABO GROUP O 15:16:00 RH TYPE RH (D) 15:16:00 NEGATIVE RPR (DX) W/REFL NON-REACTIVE NON-REACTIV N TITER AND 15:16:00 E CONFIRMATORY TESTING HEPATITIS B NON-REACTIVE NON-REACTIV N SURFACE ANTIGEN 15:16:00 E RUBELLA ANTIBODY 2.21 index N Index (IGG) 15:16:00 Interpretation ----- <0.90 Not consistent with Immunity 0.90-0.99 Equivocal > or=1.00 Consistent with Immunity The presence of rubella IgG antibody suggests immunization or past or current infection withrubella virus.Test performed at [facility] [id number] [place] [address]Yzzckwg r: NASH HUSAIN DO,MPH Panel Description: HIV 1/2 ANTIGEN/ANTIBODY,FOURTH GENERATION W/RFL HIV NON-REACTIVE NON-REACTIVE N HIV-1 antigen and HIV-1/HIV- 2 antibodies were AG/AB, 15:16:00 notdetected. There is no laboratory evidence of 4TH GEN HIVinfection. PLEASE NOTE: This information has been disclosed toyou from records whose confidentiality may beprotected by state law. If your state requires suchprotection, then the state law prohibits you frommaking any further disclosure of the informationwithout the specific written consent of the personto whom it pertains, or as otherwise permitted by law.A general authorization for the release of medical orother information is NOT sufficient for this purpose. For additional information please refer [email or web address](This link is being provided for informational/educational purposes only.) The performance of this assay has not been clinicallyvalidated in patients less than 2 years old. REPORT COMMENT:FASTING:UNKNOWNTest performed at [facility] [address] [address]Psbffvbn: NASH HUSAIN DO,MPH Panel Description: Bacteria identified in Urine by Culture CULTURE, URINE, SEE NOTE CULTURE, URINE, ROUTINE MICRO ROUTINE 15:19:00 NUMBER: [id number] TEST STATUS: FINAL SPECIMEN SOURCE: URINE SPECIMEN QUALITY: ADEQUATE RESULT: No GrowthREPORT COMMENT:RFASTING:UNKNOWNTest performed at [facility] [address] [address]Picfkhol: NASH HUSAIN DO,MPH Panel Description: CHLAMYDIA/N. GONORRHOEAE RNA, TMA CHLAMYDIA NOT DETECTED NOT DETECTED N TRACHOMATIS RNA, 15:15:00 TMA NEISSERIA NOT DETECTED NOT DETECTED N GONORRHOEAE RNA, 15:15:00 TMA [id number] SEE NOTE This test was 15:15:00 performed using the [employer] COMBO2 Assay([employer] The analytical performance characteristics of this assay, when used to test SurePath specimens havebeen determined by [employer]. REPORT COMMENT:FASTING:UNKNO WNTest performed at [facility] [address] [address]Jobemycu: NASH HUSAIN DO,MPH Advance Directives Directive Yes / No Effective Date File Name Unknown Encounters Encounter Practice Location Reason(s) Diagnoses Date Provider Care Team Description For Visit Members Juancarlos Prasad screen for Madhav Referring In Womens infections w sexl 5-201 Daniel. 700 Provider: [facility], mode of 8 [facility] Manjeet Orozco, 1522, for screening for Dr Sonu 101[address] [place], [facility] infec/parastc 120, [facility] Dr [place], [id number], [place]n of [place], normal , [id number] [place], [address]. tel:[phone] , [place]. tel:[phone] trimesterEncounter tel:[phone] For Other Specified [id number] Screening9 weeks gestation of Juancarlos Prasad for corrective therapy aide exam Marek Referring In Womens (general) (routine) 2-201 Marianne. Provider: Health AMAYA, w/o abn findingsPap 6 700 [facility] Smear Screening, Medical Manjeet Orozco, 1522, [facility] [address] [place], history of gay, Dr, [facility], nutritional and 120, Dr, [id number], metabolic Tomy Malik, [place], [address]. tel: history of endo, [phone] tel: nutritional and , [place]. [id number] metabolic disease tel: [phone] Juancarlos [place] September-2 Madhav Referring In Womens 0-201 [place]. 700 Provider: Jv CONDE, 5 [facility] Madhav Santiago, 1522, , [address], [facility], [facility] [id number], [place], [place] [address], [id number] [place], tel: , . [place], tel: [phone]. [id number] tel:[phone] Juancarlos [place] Jul-2 Madhav Referring In Womens 6-201 [place]. 700 Provider: Jv CONDE, 5 [facility] Madhav Santiago, 1522, , [address], [facility], [facility] [id number], [place], [place] [address], [id number] T[place], tel: , . [place], tel: [phone]. [id number] tel:[phone] Juancarlos [place] Mar-1 Madhav Referring In Womens 7-201 [place]. 700 Provider: Jv CONDE, 4 [facility] Manjeet Orozco, 1522, , [facility] 1010 [place], [facility], Hospital [address], [id number], [place], [place], [id number] [place], [address]. tel: , [place]. tel: tel: [phone] Juancarlos [place] May-0 Regla In Womens 7-201 Kathryn. Health AMAYA, [address] [place] [address] [address], [address] S[address], [facility], 120, [id number], [place], [place], tel:[phone] , [place]. tel: [phone] Juancarlos [place] Sep-2 [facility] In Womens 2-200 [facility], 8 700 [facility] 1522, [address], [facility] [place], 120, [id number], [place], [place], tel:[phone] , [place]. tel: [phone] Family History Family Member Diagnosis Age At [...] name Insurance type Covered democrat ID Authorization(s) [facility] [id number] [facility] [id number] [facility] [id number] Social History Type Description Quantity Date Captured Alcohol Use Details No Caffeine Use Details Unknown Tobacco Use Status Never smoked tobacco Smoking Status Never smoker Non-Smoking Tobacco Use : No Details Available : No Details Available Details Vital Signs Date / Height Weight BMI Pulse Blood Temperature Respiratory Body Head BMI Time: Rate Pressure Rate Surface Circumference percentile Area 138.90 19.9 105/2018 lbs 8 mm[Hg] 2:35 kg/m PM eter (2) Chief Complaint And Reason For Visit Unknown Chief Complaint And Reason For Visit Reason For Referral Reason For Referral Unknown Plan Of Care Date Type Action Status Appointment Brittney Smith BOOKED Future Order: Lab Order Pap Smear With HPV Reflex If ASCUS Ordered ([id number]), Collected on: Future Order: Lab Order Pap Smear With [...]
--- OUTSIDE RECORDS SUMMARY | 2018-01-08 09:28 | External Medical Summary | Continuity of Care Document ---
:1985 Author Organization [facility] Allergies Active Description Code Type Severity Reaction Onset Reported/ Identified Relationship Clinical to Patient Status Yes MEPERIDINE 1542 1 N/A Hives HCL Yes Penicillins 476 3 N/A as a child Yes Penicillins 476 3 N/A Hives Yes PRESERVATIVE 9870 1 N/A Hives FREE Medications Medication Packaging Start Date Stop Date Route Dosage Sig FERROUS Tablet 08/22/2014 SULFATE take 1 tablet by ORAL route 2 times every day FEMARA Tablet 12/02/2015 6 take 1 tablet by oral route every day CD 3-7 FEMARA Tablet 01/01/2016 6 take 1 tablet by oral route every day CD 3-7 FEMARA Tablet 01/04/2016 6 take 1 tablet by oral route every day CD 3-7 FEMARA Tablet 01/27/2016 6 take 1 tablet by oral route every day CD 3-7 FEMARA Tablet 02/25/2016 6 take 1 tablet by oral route every day CD 3-7 FEMARA Tablet 03/23/2016 8 take 1 tablet by oral route every day CD 3-7 Syringe 11/02/2017 RHOPHYLAC Tablet 12/27/2017 LEVOTHYROXINE take 1 SODIUM tablet by oral route every day Problems Date Dx Attending Type Code Diagnosis Diagnosed By Coded 05/17/2016 Ot 626.4 IRREGULAR MENSTRUATION 05/17/2016 Ot V72.40 EXAMINATION OR TEST, 05/20/2016 Juanis López Ot E03.9 HYPOTHYROIDISM, UNSPECIFIED 05/20/2016 Juanis López Ot Z32.00 ENCOUNTER FOR TEST, RESULT UNK 06/02/2016 Juanis López Ot E03.9 HYPOTHYROIDISM, UNSPECIFIED 06/02/2016 Tatpati, Juanis L Ot Z32.00 ENCOUNTER FOR TEST, RESULT UNK 07/19/2016 Tatpati, Juanis L Ot Z32.01 ENCOUNTER FOR TEST, RESULT POS 07/20/2016 Tatpati, Juanis L Ot Z32.01 ENCOUNTER FOR TEST, RESULT POS 07/22/2016 Tatpati, Juanis L Ot Z32.01 ENCOUNTER FOR TEST, RESULT POS 07/26/2016 Tatpati, Juanis L Ot Z32.01 ENCOUNTER FOR TEST, RESULT POS 07/28/2016 Tatpati, Juanis L Ot Z32.01 ENCOUNTER FOR TEST, RESULT POS 07/29/2016 Tatpati, Juanis L Ot Z32.01 ENCOUNTER FOR TEST, RESULT POS 07/29/2016 Tatpati, Juanis L Ot Z32.01 ENCOUNTER FOR TEST, RESULT POS 08/02/2016 Tatpati, Juanis L Ot Z32.01 ENCOUNTER FOR TEST, RESULT POS 08/03/2016 Tatpati, Juanis L Ot Z32.01 ENCOUNTER FOR TEST, RESULT POS 08/10/2016 Tatpati, Juanis L Ot Z32.01 ENCOUNTER FOR TEST, RESULT POS 09/06/2017 Daniel Corey O99.282 Endo, nutritional and metab diseases comp preg, second tri 09/06/2017 Daniel Corey Z36.3 Encounter For Screening For Malformations 09/06/2017 Daniel Corey Z3A.20 20 weeks gestation of 11/02/2017 Daniel Corey O99.283 Endo, nutritional and metab diseases comp preg, third tri 11/02/2017 Daniel Corey Z34.83 Encounter for suprvsn of normal , third trimester 11/02/2017 Daniel Corey Z3A.28 28 weeks gestation of 11/02/2017 Daniel Corey Z67.41 Type O blood, Rh negative 11/02/2017 Daniel Corey O99.283 Endo, nutritional and metab diseases comp preg, third tri 11/02/2017 Daniel Corey Z34.83 Encounter for suprvsn of normal , third trimester 11/02/2017 Daniel Corey Z3A.28 28 weeks gestation of 11/02/2017 Daniel Corey Z67.41 Type O blood, Rh negative 12/21/2017 Daniel Corey O99.283 Endo, nutritional and metab diseases comp preg, third tri 12/21/2017 Daniel Corey Z3A.35 35 weeks gestation of 01/03/2018 W 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 Procedures Code Description [place] [address] Specimen 02/18/2008 handling/transport 76292 Preventive 02/18/2008 checkup, est,18-39 yrs 63020 Ultrasnd exam 09/06/2017 of preg uterus, compl 79796 OB Visit No 11/02/2017 Charge 99179 Injection 11/02/2017 Administration J2791 Rhophylac 100 11/02/2017 [place] [address] Ultrasnd preg 12/21/2017 uterus, flwup/repeat 29156 Immuniz 12/21/2017 admnin, 1 vac, sngl/combo 65543 TDAP VACCINE 12/21/2017 >7 IM Results Test Result Range THYROID STIMULATING HORMONE* - 05/17/16 14:37 THYROID STIMULATING HORMONE 2.40 0.46-4.68 HCG,QUANTITATIVE* - 05/17/16 14:37 HCG,QUANTITATIVE < 2 <6 THYROID STIMULATING HORMONE* - 07/13/16 08:15 THYROID STIMULATING HORMONE 2.30 0.46-4.68 HCG,QUANTITATIVE* - 07/13/16 08:15 HCG,QUANTITATIVE 15 <6 HCG,QUANTITATIVE* - 07/15/16 08:08 HCG,QUANTITATIVE 38 <6 HCG,QUANTITATIVE* - 07/19/16 08:00 HCG,QUANTITATIVE 26 <6 HCG,QUANTITATIVE* - 07/21/16 08:06 HCG,QUANTITATIVE 19 <6 HCG,QUANTITATIVE* - 07/28/16 08:15 HCG,QUANTITATIVE < 2 <6 Encounters ACCT No. Visit Discharge Status Pt. Type Provider Facility Loc./Unit Complaint Date/Time [id number] 12/27/2017 12/27/2017 [facility] Outpatient Madhav, 14:57:00 23:59:59 Daniel Santiago [id number] 12/21/2017 12/21/2017 [facility] Outpatient Madhav, 14:45:00 23:59:59 Daniel Santiago [id number] 12/21/2017 12/21/2017 [facility] Outpatient Madhav, 14:15:00 23:59:59 Daniel Santiago [id number] 12/06/2017 12/06/2017 [facility] Outpatient Madhav, 15:00:00 23:59:59 Daniel Santiago [id number] 11/21/2017 11/21/2017 [facility] Outpatient Madhav, 15:00:00 23:59:59 Daniel R [id number] 11/07/2017 11/07/2017 [facility] Outpatient Madhav, 08:12:00 23:59:59 Daniel Santiago [id number] 11/02/2017 11/02/2017 [facility] Outpatient Madhav, 15:00:00 23:59:59 Daniel Santiago [id number] 10/05/2017 10/05/2017 [facility] Outpatient Madhav, 15:15:00 23:59:59 Daniel Santiago [id number] 09/06/2017 09/06/2017 [facility] Outpatient Madhav, 14:00:00 23:59:59 Daniel Santiago [id number] 09/06/2017 09/06/2017 [facility] Outpatient Madhav, 13:45:00 23:59:59 Daniel Santiago [id number] 08/15/2017 08/15/2017 [facility] Outpatient Madhav, 16:30:00 23:59:59 Daniel Santiago [id number] 07/25/2017 07/25/2017 [facility] Outpatient Madhav, 16:30:00 23:59:59 Daniel Santiago [id number] 06/22/2017 06/22/2017 [facility] Outpatient Madhav, 14:15:00 23:59:59 Daniel Santiago [id number] 03/23/2016 03/23/2016 [facility] Outpatient Madhav, 14:26:00 23:59:59 Daniel Santiago [id number] 02/25/2016 02/25/2016 [facility] Outpatient Madhav, 15:07:00 23:59:59 Daniel Santiago [id number] 02/24/2016 02/24/2016 [facility] Outpatient Madhav, 14:19:00 23:59:59 Daniel Santiago [id number] 01/27/2016 01/27/2016 [facility] Outpatient Madhav, 10:21:00 23:59:59 Daniel Santiago [id number] 01/04/2016 01/04/2016 [facility] Outpatient Madhav, 09:49:00 23:59:59 Daniel Santiago [id number] 01/01/2016 01/01/2016 [facility] Outpatient Madhav, 08:57:00 23:59:59 Daniel Santiago [id number] 12/01/2015 12/01/2015 [facility] Outpatient Madhav, 13:11:00 23:59:59 Daniel Santiago [id number] 09/29/2015 09/29/2015 [facility] Outpatient Jara, 09:00:00 23:59:59 Marianne Finch [id number] 09/28/2015 09/28/2015 [facility] Outpatient Jara, 11:00:00 23:59:59 Marianne Finch [id number] 01/03/2018 Document 15:30:00 Registratio n [id number] 12/28/2017 Document 15:00:00 Registratio n 088670 11/07/2017 Document 08:10:59 Registratio n [id number] 02/18/2008 Document 14:19:00 Registratio n [id number] 07/28/2016 07/28/2016 [facility]LS Outpatient Tatmomo, [facility] [id number] 08:10:00 23:59:59 [facility] [id number] 07/21/2016 07/21/2016 [facility] Outpatient Tatpati, [facility] 0214 08:03:00 23:59:59 [facility] [id number] 07/19/2016 07/19/2016 [facility] Outpatient Tatpati, [facility] [id number] 07:54:00 23:59:59 [facility] [id number] 07/15/2016 07/15/2016 [facility] Outpatient Tatpati, [facility] 3318 08:05:00 23:59:59 [facility] [id number] 07/13/2016 07/13/2016 [facility] Outpatient Tatpati, [facility] [id number] 08:04:00 23:59:59 [facility] [id number] 05/17/2016 05/17/2016 CLS Outpatient Tatpati, [facility] [id number] 14:35:00 23:59:59 [facility] [id number] 04/09/2012 Document 1436 10:33:00 Registratio n [id number] 11/08/2011 Document 5045 16:55:00 Registratio n
--- OUTSIDE RECORDS SUMMARY | 2018-01-08 09:28 | External Medical Summary | Continuity of Care Document ---
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 700 Provider: Jv CONDE, , second 8 Medical Abhi ROBERTO Box [id number] weeks Center Manjeet Orozco, 1522, gestation of Dr Sonu 1010 [place], 120, [facility], Dr Tomy, [id number], [place], [place], [id number] [place], [address]. tel: , [place]. tel: tel:[phone] Juancarlos [place] Endo, nutritional Apr-1 Madahv Referring In Womens Ultrasound and metab 1-201 Daniel. 700 Provider: Jv CONDE, diseases comp 8 Medical Abhi PO Box preg, second Center Manjeet , 1522, triEncounter For Dr Sonu 1010 [place], 120, [facility], Screening For Dr Tomy, [id number], [id number] [place], [place], weeks gestation [id number] [place], [address]. tel: of , [place]. tel: tel:[phone] Juancarlos [place] Encounter for Mar-2 Madhav Referring In Womens suprvsn of normal 0-201 Daniel. 700 Provider: Jv CONDE, , second 8 Medical Abhi PO Box [id number] weeks Center Manjeet Orozco, 1522, gestation of Dr Sonu 1010 [place], 120, [facility], Dr Tomy, [id number], [place], [place] [id number] [place], [address]. tel: , [place]. tel: tel: [phone] Juancarlos [place] Encounter for Feb-2 Madhav Referring In Womens suprvsn of normal 7-201 [facility]. 700 Provider: Jv CONDE, , second 8 Medical Abhi PO Kevan [id number] weeks Center Manjeet Orozco, 1522, gestation of Dr, [facility] 1010 S[place], 120, [facility], Dr Tomy, [id number], [place], [facility] [id number] [place], [address]. tel: , [place]. tel: tel: [phone] Juancarlos [place] Encntr screen for Petros-2 Madhav Referring In Womens infections w sexl 5-201 [facility]. 700 Provider: Jv CONDE, mode of 8 [facility] Abhi PO Box transmissEncounte [place] Manjeet M, 1522, r for screening , [place] [address] [place], for oth 120, [facility], infec/parastc Dr Tomy, , [facility] [place], [facility] for suprvsn of [id number] [place], [address]. tel: normal , , [place]. 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 Provider: Jv CONDE, (routine) w/o abn 6 700 [facility] Kevan findingsPap Smear Medical Manjeet Orozco, 1522, Screening, Center 1010 Sj [facility] , [facility], history of endo, 120, , , [facility], [place], [address]. tel: diseasePersonal [phone] tel: history of endo, , [place]. [id number] nutritional and tel: metabolic disease [phone] Juancarlos [place] September-2 Madhav Referring In Womens 0-201 [facility]. 700 Provider: Jv CONDE, 5 Medical [facility] Madhav R, 1522, , [place] [address] [place], 120, Medical Tomy [address] [id number], [facility] 120, [place] [id number] [place], tel: , [place]. [place], tel: [phone]. [id number] tel:[phone] Juancarlos [place] Mar-2 Madhav Referring In Womens 6-201 [facility]. 700 Provider: Health PA, 5 [facility] Madhav Santiago, 1522, , Sonu 700 [place], [facility][note 2], [facility], [facility] [id number], [place], [facility] 120, [id number] [place], tel: , [place]. [place], tel: [phone]. [id number] tel:[phone] Juancarlos [place] Nov-1 Madhav Referring In Womens 7-201 [facility]. 700 Provider: Health PA, 4 [facility] Manjeet Orozco, 1522, , Sonu 1010 [place] [address], [facility], Dr Tomy, [id number], [facility] [id number] [facility] [address]. tel: , [place]. tel: tel: [phone] Associates [place] May-0 Regla In Womens 7-201 Kathryn. Health PA, [address] [place], [place] [address], [address], [facility], 120, [id number], [facility] [place], tel:[phone] , [place]. tel: [phone] Juancarlos [place] Sep-2 Regla In Womens 2-200 Kathryn. Health PA, [address] [place] [address] 1522, [address], [facility], 120, [id number], [facility] [place], tel: [phone] , [place]. tel: [phone] Family History Family Member Diagnosis Age At [...] name Insurance type Covered libertarian ID Authorization(s) [facility] [id number] [facility] [id number] [facility] [id number] Social History Type Description Quantity Date Captured [...] Complete OB Ultrasound > 14 Weeks Ordered ([id number]) Future Order: Lab Order Pap Smear With [...]
--- OUTSIDE RECORDS SUMMARY | 2018-01-08 09:28 | External Medical Summary | Continuity of Care Document ---
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) w/o abn findings Pap Smear Screening, Cervix Personal history of endo, nutritional and metabolic disease Personal history of endo, nutritional and metabolic disease Encounter for suprvsn of normal - , second trimester 14 weeks gestation of - Encounter for suprvsn of normal - , second trimester 17 weeks gestation of - Irregular Menses - Active Active Procedures Procedure Date OB Visit No Charge Results Test Name Date and Time Measure Units Reference Range Abnormal Flag Comments Unknown Advance Directives Directive Yes / No Effective Date File Name Unknown Encounters Encounter Practice Location Reason(s) Diagnoses Date Provider Care Team Description For Visit Members Juancarlos Huitron Encounter for Aug-1 Madhav Referring In Womens suprvsn of normal 1-201 Daniel. 700 Provider: Jv CONDE, , second 8 Medical Abhi ROBERTO Box [email or web address] weeks Center Manjeet Orozco, 1522, gestation of Dr Sonu [address] [place], 120, [facility], Dr Tomy, [id number], [place], [place], [id number] [place], [address]. tel: , [place]. tel: tel:[phone] Juancarlos Huitron Endo, nutritional Aug- Madhav Referring In Womens Ultrasound and metab 1-201 Daniel. 700 Provider: Jv CONDE, diseases comp 8 Medical Abhi PO Box preg, second Center Manjeet Orozco, 1522, triEncounter For , Sonu [address] [place], 120, [facility], Screening For Dr Tomy, [id number], [id number] [place], [place], weeks gestation [id number] [place], [address]. tel: of , [place]. tel: tel: [phone] Juancarlos Huitron Encounter for Jul-2 Madhav Referring In Womens suprvsn of normal 0-201 Daniel. 700 Provider: Jv CONDE, , second 8 Medical Abhi PO Box [email or web address] weeks Center Manjeet Orozco, 1522, gestation of Dr Sonu [address] [place], 120, [facility], Dr Tomy, [id number], [place], [place], [id number] [place], [address]. tel: , [place]. tel: tel: [phone] Juancarlos Huitron Encounter for Feb-2 Madhav Referring In Womens suprvsn of normal 7-201 [place]. 700 Provider: Jv CONDE, , second 8 Medical Abhi Box [email or web address] weeks Center Manjeet Orozco, 1522, gestation of Dr, [facility] [[email or web address] [address] [place], 120, [facility], Dr Tomy, [id number], [facility], [id number] [place], [address]. tel: , [place]. tel: tel: [phone] Juancarlos Huitron Encntr screen for Petros-2 Madhav Referring In Womens infections w sexl 5-201 [place]. 700 Provider: Jv CONDE, mode of 8 [facility] Abhi Box transmissEncounte Groom Manjeet Orozco, 1522, r for screening , [address], for oth 120, [facility], infec/parastc Dr Tomy, , [facility] [place], [facility] for suprvsn [place] [id number] [place], [address]. tel: normal , , [place]. 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 Provider: Jv CONDE, (routine) w/o abn 6 700 [facility] findingsPap Smear Medical Manjeet Orozco, 1522, Screening, Center [address] [place], CervixPersonal , [facility], history of endo, 120, , , nutritional [facility], [place], [address]. tel: diseasePersonal [phone] tel: history of endo, , [place]. [id number] nutritional and tel:+[phone] metabolic disease [phone] Juancarlos Huitron September-2 Madhav Referring In Womens 0-201 [place]. 700 Provider: Jv CONDE, [address] [facility] Madhav R, 1522, Dr, [facility] [[email or web address]] [address] [place], 120, Medical Tomy [address]ORD[address] Center [address] [id number], [place], [facility] [[email or web address]] 120, [place] [id number] Tomy, tel: , [place]. [place], tel: [phone]. [phone] tel:[phone] Juancarlos Huitron Mar-2 Madhav Referring In Womens 6-201 [place]. 700 Provider: Health PA, 5 [facility] Madhav Santiago, 1522, , Sonu [address] [place], [facility], [facility] [id number], [place], [facility] [[email or web address]] 120, [id number] Tomy, tel: , . [place], tel: [phone]. [phone] tel:[phone] Juancarlos Huitron Nov-1 Madhav Referring In Womens 7-201 [place]. 700 Provider: Health PA, 4 [facility] Manjeet Orozco, 1522, , [facility] [[email or web address]] [address] [place] [address], [facility], Dr Tomy, [id number] [id number] [facility] [address]. tel: , [place]. tel: tel: [phone] Associates Tomy May-0 Regla In Womens 7-201 Kathryn. Health PA, [address] [place], [place] [address], [address]y [address], [facility], 120, [id number], [facility] [place], tel: [phone] , [place]. tel: [phone] Juancarlos Huitron Sep-2 Regla In Womens 2-200 Kathryn. [facility] PA, [address] [place] [address] 1522, [address] Sj, [facility], 120, [id number], [facility] [place], tel: [phone] , [place]. tel: [phone] Family History Family Member Diagnosis Age At [...] name Insurance type Covered libertarian ID Authorization(s) [facility] [id number] [facility] [id number] [facility] [id number] Social History Type Description Quantity Date Captured Alcohol Use Details No Caffeine Use Details Unknown Tobacco Use Status Unknown Smoking Status Never smoker Vital Signs Date / Height Weight BMI Pulse Blood Temperature Respiratory Body Head BMI Time: Rate Pressure Rate Surface Circumference percentile Area 148.30 21.3 111/ lbs 4 mm[Hg] 2:12 kg/m PM eter (2) Chief Complaint And Reason For Visit Unknown Chief Complaint And Reason For Visit Reason For Referral Reason For Referral Unknown Plan Of Care Date Type Action Status Appointment Brittney Smith BOOKED Future Order: Radiology Order Complete OB Ultrasound > 14 Weeks Ordered ([id number]) Future Order: Lab Order Pap Smear With [...]
--- OUTSIDE RECORDS SUMMARY | 2018-01-08 09:28 | External Medical Summary | Continuity of Care Document ---
:1985 Author Organization [facility] Address [address] [place], [place] [phone] Phone Care Team Providers Name Role Phone [...] - Type O blood, Rh negative - Encntr screen for infections w sexl [...] 24 weeks gestation of - Encntr for facility service associate exam (general) - (routine) w/o abn findings [...] Procedures Procedure Date OB Visit No Charge Injection Administration Rhophylac 100 Units RBC antibody screen, each Automated hemogram (CBC) Glucose test Assay thyroid stimulating hormone Venpnctr fngr/heel/ear stick routne RBC antibody identification, each Results Test Name Date and Time Measure Units Reference Range Abnormal Flag Comments Panel Description: CBC With Differential/Platelet WBC 16:00:00 11.0 x10E3/uL 3.4-10.8 H RBC 16:00:00 3.42 x10E6/uL 3.77-5.28 L Hemoglobin 16:00:00 10.2 g/dL 11.1-15.9 L Hematocrit 16:00:00 32.0 % 34.0-46.6 L MCV 16:00:00 94 fL 79-97 MCH 16:00:00 29.8 pg 26.6-33.0 MCHC 16:00:00 31.9 g/dL 31.5-35.7 RDW 16:00:00 12.6 % 12.3-15.4 Platelets 16:00:00 249 x10E3/uL 150-379 Neutrophils 16:00:00 74 % Not Estab. Lymphs 16:00:00 15 % Not Estab. Monocytes 16:00:00 9 % Not Estab. Eos 16:00:00 1 % Not Estab. Basos 16:00:00 0 % Not Estab. Immature Cells 16:00:00 Neutrophils (Absolute) 16:00:00 8.2 x10E3/uL 1.4-7.0 H Lymphs (Absolute) 16:00:00 1.7 x10E3/uL 0.7-3.1 Monocytes(Absolute) 16:00:00 1.0 x10E3/uL 0.1-0.9 H Eos (Absolute) 16:00:00 0.1 x10E3/uL 0.0-0.4 Baso (Absolute) 16:00:00 0.0 x10E3/uL 0.0-0.2 Immature Granulocytes 16:00:00 1 % Not Estab. Immature Grans (Abs) 16:00:00 0.1 x10E3/uL 0.0-0.1 NRBC 16:00:00 Hematology Comments: 16:00:00 Panel Description: Thyrotropin [Units/volume] in Serum or Plasma by Detection limit <=0.05 mIU/L TSH 16:00:00 2.520 uIU/mL 0.450-4.500 Reference Interval : First Trimester 0.100 - 2.500 Second Trimester 0.200 - 3.000 Third Trimester 0.300 - 3.000 . Non- Adult 0.450 - 4.500 Panel Description: Glucose [Mass/volume] in Serum or Plasma --1 hour post 50 g glucose PO Gestational Diabetes Screen 16:00:00 109 mg/dL 65-135 Panel Description: Blood group antibody screen [Presence] in Serum or Plasma Antibody Screen 16:00:00 See Final Results Negative Panel Description: Ab Scr+Antibody ID Antibody Screen 16:00:00 Antibody Id. #1 16:00:00 UNIDBB [facility] [place] [place] [facility]. Panel Description: Ab Scr+Antibody ID Antibody Screen Positive Negative A 16:00:00 Antibody Id. #1 [id number] The patient's serum showed 16:00:00 nonspecific reactivity in the antiglobulinphase of testing. Additional testing did not identify a clinicallysignificant antibody. It is possible that the antibody is too weak toidentify. We recommend repeat testing in 4 weeks. Lucius Titer #1 16:00:00 Antibody Id. #2 16:00:00 Lucius Titer #2 16:00:00 Panel Description: Ab Scr+Antibody ID Lucius Titer #1 16:00:00 Antibody Id. #2 16:00:00 Lucius Titer #2 16:00:00 Advance Directives Directive Yes / No Effective Date File Name Unknown Encounters Encounter Practice Location Reason(s) Diagnoses Date Provider Care Team Description For Visit Members Juancarlos Huitron Encounter for Tavo-2 Madhav Referring In Womens suprvsn of normal 6-201 Daniel. 700 Provider: Health PA, , third 8 Medical Abhi PO Box [id number] weeks Center Manjeet Orozco, 1522, gestation of , [address]u [address] [place], 120, [facility] [place], Dr Tomy, [id number], [place], [facility] [place] [id number] [place], [address]. tel:[phone] , [place]. tel:[phone] tel: [phone] Juancarlos Huitron Endo, nutritional Tavo-0 Madhav Referring In Womens and metab 7-201 Daniel. 700 Provider: Health PA, diseases comp 8 Medical Abhi PO Box preg, third Center Manjeet M, 1522, triEncounter for Dr 1009 Sj, [facility] 120, [facility], , third Dr Tomy, [id number], [email or web address] weeks [facility], gestation [place] [id number] [place], [address]. tel: pregnancyType O , [place]. tel: blood, Rh tel: negative [phone] Juancarlos Carr, nutritional May-1 Madhav Referring In Womens and metab 0-201 Daniel. 700 Provider: Health PA, diseases comp 8 Medical Abhi PO Box preg, second Center [facility], 1522, triEncounter for oSnu Hayden Eusebia Gustafson [facility] normal 120, [facility], , second Dr Tomy, , [email or web address] weeks [facility], gestation of [id number] [place], [address]. tel: , [place]. tel: tel:[phone] Juancarlos Huitron Encounter for Apr-1 Madhav Referring In Womens suprvsn of normal 1-201 [place]. 700 Provider: Health PA, , second 8 Medical Abhi PO Box [email or web address] weeks Center [facility], 1522, gestation of Sonu Hayden Eusebia Gustafson, 120, [facility], Dr Tomy, [id number], [facility], [id number] [place], [address]. tel: , [place]. tel: tel: [phone] Juancarlos Carr, nutritional Apr-1 Madhav Referring In Womens Ultrasound and metab 1-201 Daniel. 700 Provider: Health PA, diseases comp 8 Medical Abhi PO Box preg, second Center Manjeet M, 1522, triEncjayjay For Sonu Hayden, 120, [facility], Screening For Dr Tomy, [id number], [id number] [facility], weeks gestation [id number] [place], [address]. tel: of , [place]. tel: tel: [phone] Juancarlos Huitron Encounter for Mar-2 Madhav Referring In Womens suprvsn of normal 0-201 Daniel. 700 Provider: Jv CONDE, , second 8 Medical Abhi PO Box [email or web address] weeks Center Manjeet Orozco, 1522, gestation of Sonu Hayden, 120, Hospital [place], Dr Tomy, , [facility] [id number] [place], [address]. tel: , [place]. tel: tel: [phone] Juancarlos Huitron Encounter for Feb-2 Madhav Referring In Womens suprvsn of normal 7-201 Daniel. 700 Provider: Jv CONDE, , second 8 Medical Abhi PO Box [email or web address] weeks Center Manjeet Orozco, 1522, gestation of Sonu Hayden [facility][note 2] Sj, 120, Hospital [place], Dr Tomy, , [facility] [id number] [place], [address]. tel: , [place]. tel: tel: [phone] Huitron Encntr screen for Petros-2 Madhav Referring In Womens infections w sexl 5-201 [place]. 700 Provider: Jv CONDE, mode of 8 Medical Abhi PO Box transmissEncounte [place] Manjeet Orozco, 1522, r for screening Dr [place] [address] [place], for oth 120, [facility], infec/parastc Dr Tomy, , diseasesEncounter [facility] for suprvsn [place] [id number] [place], [address]. tel: normal , , [place]. tel: first tel: trimesterEncounte [phone] r For Other Specified Screening9 weeks gestation of Juancarlos Huitron Encntr for facility service associate May-0 Jara Referring In Womens exam (general) 2-201 Marianne. Provider: Jv CONDE, (routine) w/o abn 6 700 Abhi PO Box findingsPap Smear Medical Manjeet Orozco, 1522, Screening, Center [address], CervixPersonal , [facility], history of endo, 120, , , nutritional and Tomy Malik, [place], [address]. tel: diseasePersonal [phone] tel: history of endo, , [place]. [phone] nutritional and tel: metabolic disease [phone] Associates Tomy May-2 Madhav Referring In Womens 0-201 [place]. 700 Provider: Health PA, 5 [facility] Madhav Santiago, 1522, , Sonu [address] [place], 120, Medical [place], [facility] [id number], [place], [place] [address], [id number] Tomy, tel: , [place]. [place], tel:[phone]. [id number] tel:[phone] Juancarlos Huitron Mar-2 Madhav Referring In Womens 6-201 [place]. 700 Provider: Health PA, 5 [facility] Madhav Santiago, 1522, , Sonu 700 [place], 120, Medical [place], [facility] [id number], [place], [facility] 120, [id number] Tomy, tel: , . [place], tel:[phone]. [phone] tel:[phone] Juancarlos Huitron Nov-1 Madhav Referring In Womens 7-201 [place]. 700 Provider: Health PA, 4 [facility] Danielito Norton2Dr, [facility] [address] [place], [facility], [facility], Dr Tomy, [id number] [id number] [place], [address]. tel: , [place]. tel: tel: [phone] Associates Tomy May-0 Regla In Womens 7-201 Kathryn. Health PA, [address] [place] [address] 1522, [address], [facility] [place], 120, [id number], Tomy, [place], tel:[phone] , [place]. tel: [phone] Juancarlos Huitron Sep-2 Regla In Womens 2-200 Kathryn. Health PA, [address] [place] [address] 1522, [address]y [address], [facility] [place], 120, [id number], Tomy, [facility], tel:[phone] , . tel: [phone] Family History Family Member Diagnosis Age At [...] older Payers Payer name Insurance type Covered republican ID Authorization(s) [facility] [id number] [facility] [id number] [facility] [id number] [facility] [id number] Social History Type Description Quantity Date Captured Alcohol Use Details No Caffeine Use Details Unknown Tobacco Use Status Unknown Smoking Status Never smoker Vital Signs Date / Height Weight BMI Pulse Blood Temperature Respiratory Body Head BMI Time: Rate Pressure Rate Surface Circumference percentile Area 159.70 22.9 /2018 lbs 8 mm[Hg] 3:10 kg/m PM eter (2) Chief Complaint And Reason For Visit Unknown Chief Complaint And Reason For Visit Reason For Referral Reason For Referral Unknown Plan Of Care Date Type Action Status Appointment Brittney Smith BOOKED Future Order: Radiology Order Complete OB Ultrasound > 14 Weeks Ordered ([id number]) Future Order: Lab Order Pap Smear With [...]
[2018-01-08] MEDS ORDERED: SALINE FLUSH 10ml SYRINGE IV PRN (09:45)
[2018-01-08] MEDS ORDERED: CALCIUM CARBONATE Chewable 500mg TABLET PO PRN ×2 (09:45→17:11)
[2018-01-08] MEDS ORDERED: CARBOPROST 250 MCG/ML INJECTION IM PRN (09:45)
[2018-01-08] MEDS ORDERED: METHYLERGONOVINE 0.2 MG/ML INJECTION IM PRN (09:45)
[2018-01-08] MEDS ORDERED: CEFAZOLIN 1 G in NS 100 ML IV SCH (09:45)
[2018-01-08] MEDS ORDERED: ACETAMINOPHEN 500 MG TABLET PO PRN ×2 (09:45→17:11)
[2018-01-08] MEDS ORDERED: MAG-AL + SIM ORAL LIQUID 30ml PO PRN ×2 (09:45→17:11)
[2018-01-08] MEDS ORDERED: OXYTOCIN DRIP 30 UNIT/500 ML ML IV PRN (09:45)
[2018-01-08] MEDS ORDERED: D5LR 1,000 ML IV PRN (09:45)
[2018-01-08] MEDS ORDERED: CEFAZOLIN PREMIX (MC ONLY) 2 GM/50 ML BAG IV ONE (10:15)
[2018-01-08] MEDS: LR 1,000 ML IV PRN ×2 (10:15→11:25)
[2018-01-08] MEDS ORDERED: DiphenhydrAMINE 50 MG/ML INJECTION IVP PRN ×2 (10:17→11:37)
[2018-01-08] MEDS ORDERED: ONDANSETRON 4 MG/2 ML INJECTION IVP PRN ×2 (10:17→11:37)
[2018-01-08] MEDS ORDERED: ROPIVACAINE 1% 10MG/ML INJ 200 MG, SUFentanil 50 MCG in NS 100 ML EPI PRN ×2 (10:17→11:37)
[2018-01-08] MEDS ORDERED: NALOXONE 0.4 MG/ML INJECTION IVP PRN ×2 (10:17→11:37)
--- NOTE | 2018-01-08 10:17 | Anesthesia Preoperative Report ---
Anesthesia Epidural/Spinal Rec - Date and Time Date: 01/08/18 Procedure: Labor Epidural Plan: Epidural - Vital Signs /Para: G: P: - Medictaions & Allergies Inpatient Medications: Current Medications Acetaminophen (Tylenol) 500 - 1,000 mg PO Q4H PRN PRN Reason: Pain Al Hydroxide/Mg Hydroxide (Maalox Plus) 30 ml PO Q3H PRN PRN Reason: Indigestion Calcium Carbonate (Tums) 500 - 1,000 mg PO Q2H PRN PRN Reason: Indigestion Carboprost Tromethamine (Hemabate) 250 mcg IM O PRN PRN Reason: .Downtime Cefazolin Sodium 1 g/ Sodium (Chloride) 100 mls @ 200 mls/hr IV Q8H RICHAR Cefazolin Sodium/Dextrose (Kefzol Premix (Mc Only)) 2 gm in 50 mls @ 100 mls/ hr IV O ONE Stop: 01/08/18 10:44 Dextrose/Lactated Ringer's (Dextrose 5%-Lactated Ringers) 1,000 mls @ 125 mls/ hr IV .Q8H PRN PRN Reason: Labor Lactated Ringer's (Lactated Ringers) 1,000 mls @ 999 mls/hr IV .Q1H1M PRN Oxytocin (Pitocin Drip) 30 unit in 500 mls @ 2 mls/hr IV .Q24H PRN; Protocol PRN Reason: Induction/Augmentation Methylergonovine Maleate (Methergine) 0.2 mg IM O PRN Misoprostol (Cytotec) 800 mcg [place] ONCE PRN Sodium Chloride (Iv Flush) 10 - 80 ml IV PRN PRN PRN Reason: Flushing Allergies/Adverse Reactions: Allergies Allergy/AdvReac Type Severity Reaction Status Date / Time Penicillins Allergy Mild HIVES Verified 11/20/12 21:41 meperidine HCl Allergy Intermediate HIVES Uncoded 10/15/14 11:16 - Home Medications Home Medications: Home Medications Medication Instructions Recorded Confirmed Type Levothyroxine Sodium 25 mcg PO DAILY #0 11/20/12 History Vits W-Ca,Fe,Fa(<1MG) 1 tab PO DAILY #0 11/20/12 History () Hydrocodone/Acetaminophen 1 - 2 tab PO Q4H PRN #20 tab 06/01/15 Rx [Hydrocodon-Acetaminophen 5-325] - Medical History Renal/Endocrine: Reports: Thyroid Disease - Surgical History Anesthesia Reactions: None Hx Family Anesthesia Reaction: No History of Motion Sickness: No - Social History Second Hand Exposure: No Substance Use Type: does not use Alcohol Intake Frequency: does not drink Hx Chewing Tobacco Use: No - Pertinent Findings EKG Rhythm: Normal Sinus Rhythm - Physical Exam Respiratory Exam: lungs clear Cardiovascular Exam: regular rate and rhythm, no murmur - Airway Assessment Mallampati Score: I Neck Extension: good Overall Assessment: no airway concerns - ASA ASA Score: 2 - Discussion Discussion: Discussed risks/options/alternatives of anesthesia and questions answered. Patient consents. Nursing pain assessment noted. Anesthesia Discussion: spouse Attestation Statement: Prior to the delivery of any anesthetic medication, I examined the patient, developed the plan, obtained the patient's consent and discussed the risk and benefits of the procedure with the patient/guardian.
[2018-01-08 15:30] VITALS: BMI 23.8
[2018-01-08] MEDS ORDERED: DiphenhydrAMINE 25 MG CAPSULE PO PRN (17:11)
[2018-01-08] MEDS ORDERED: HYDROCORTISONE 2.5% CREAM 30gm RECTALLY PRN (17:11)
[2018-01-08] MEDS ORDERED: RHOPHYLAC - PHARMACY CONSULT MC ONE ×2 (17:11)
--- NOTE | 2018-01-08 17:11 | OB/GYN Procedure Note ---
Delivery date: 01/08/18 Events: Labor Induction, Premature Rupture of Membrane Intrapartal events: None Induction method: per pitocin protocol Delivery monitor: external FHT, external uterine Route of delivery: Anesthesia type: Epidural Disposition: floor - Baby 1 gender: Male presentation: Vertex Placenta delivery description: Spontaneous cord vessel description: 3 Vessels at 1 minute: 8 at 5 minutes: 9
[2018-01-08] MEDS ORDERED: OXYTOCIN DRIP 30 UNIT/500 ML ML IV SCH (17:15)
--- NOTE | 2018-01-08 19:53 | Labor and Delivery Note ---
DATE OF DELIVERY 01/08/2018 NARRATIVE There was a spontaneous vaginal delivery over intact perineum with epidural anesthesia of a viable male infant in cephalic presentation with Apgars of 8/9. There was no nuchal cord noted and no meconium. Spontaneous delivery of placenta with a three-vessel cord. A small first-degree paraclitoral that was hemostatic and not repaired. Estimated blood loss was 100 mL. Brittney is a G4, P2 who presented to Maternal/Child with premature rupture of membranes, noted to be grossly ruptured and not having any contractions at that time. Group B strep prophylaxis and Pitocin was started for induction of labor secondary to premature rupture of membranes. She got to a max dose of 6 on the Pitocin. It was turned off for a spontaneous deceleration when the patient was noted to be 4 cm. At this time at cervical exam a forebag was noted and was ruptured. heart tones allowed. Pitocin was restarted and got a max dose of 2 and she contracted regularly. She did have epidural anesthesia and she progressed nicely over the next three hours and was noted to go from 5 cm to complete over the time of an hour. She pushed with approximately two contractions and delivered without complication. [facility]
[2018-01-08] MEDS: IBUPROFEN 800 MG TABLET PO PRN (20:10)
[2018-01-08] MEDS: Oxycodone/Acetaminophen 5/325 1 TAB PO PRN (22:37)
[2018-01-08 23:29] VITALS: RESP 16
[2018-01-09] MEDS: IBUPROFEN 800 MG TABLET PO PRN ×3 (04:48→21:49)
[2018-01-09] MEDS: Oxycodone/Acetaminophen 5/325 1 TAB PO PRN ×2 (07:31→17:39)
--- NOTE | 2018-01-09 08:16 | OB/GYN Progress Note ---
OB-PP Progress Note - General PPD1 Maternal Group B Strep: Positive - Subjective Date: 01/09/18 Lochia: Moderate Pain: controlled Voiding: voiding Nausea or Vomiting Present: No - Objective Vital Signs: Last Vital Signs Temp 97.7 F 01/09/18 04:45 Pulse 74 01/09/18 04:45 Resp 16 01/09/18 04:45 BP 111/75 01/09/18 04:45 Pulse Ox 96 01/09/18 04:45 Urine Output: good General: alert and oriented Abdomen: fundus firm Extremities: non-tender Edema: none Laboratory: Laboratory Results - last 24 hr 01/08/18 01/08/18 01/08/18 10:24 17:05 17:12 WBC 12.7 H RBC 3.61 L Hgb 10.7 L Hct 32.2 L MCV 89.2 MCH 29.6 MCHC 33.2 RDW Std Deviation 40.0 Plt Count 204 MPV 11.1 Hgb /Adult Ratio Cord VBG pH 7.361 Cord VBG pCO2 41.1 Cord VBG pO2 30.5 Cord VBG HCO3 23.3 Cord VBG Total CO2 24.5 Cord VBG Base Excess -2.1 Cord VBG O2 Sat 55.9 RhIG Candidate? Is a candidate 01/08/18 19:36 WBC RBC Hgb Hct MCV MCH MCHC RDW Std Deviation Plt Count MPV Hgb /Adult Ratio 0.0000 Cord VBG pH Cord VBG pCO2 Cord VBG pO2 Cord VBG HCO3 Cord VBG Total CO2 Cord VBG Base Excess Cord VBG O2 Sat RhIG Candidate? - Assessment Assessment: , GBS positive - Plan Plan: routine care
--- NOTE | 2018-01-09 08:27 | Anesthesia Postoperative Note ---
- Date and Time Date: 01/09/18 Time: 08:27 - Status Patient Participated in Evaluation: Patient Participated in Person Vital Signs: Temperature 97.7 F 01/09/18 04:45 Pulse Rate 74 01/09/18 04:45 Respiratory Rate 16 01/09/18 04:45 Blood Pressure 111/75 01/09/18 04:45 Pulse Oximetry 96 01/09/18 04:45 Respiratory Function: Airway Patent Mental Status: Alert and Oriented Pain Intensity: 0 Hydration: Taking PO Fluids Nausea/Vomiting: None Complications During Recover: None Apparent - Follow-Up Instructions Instructions: Per Surgeon
[2018-01-09] MEDS ORDERED: PRENATAL VITAMIN TABLET PO SCH (09:00)
[2018-01-09] MEDS ORDERED: DOCUSATE CALCIUM 240 MG CAPSULE PO SCH (09:00)
[2018-01-09] MEDS ORDERED: RHO(D) IMMUNE GLOBULIN 300 MCG/2 ML INJECTION IVP ONE (13:30)
[2018-01-10] MEDS: Oxycodone/Acetaminophen 5/325 1 TAB PO PRN (02:43)
[2018-01-10] MEDS: IBUPROFEN 800 MG TABLET PO PRN (06:46)
[2018-01-10 06:54] VITALS: TEMP 98.4
--- NOTE | 2018-01-10 08:14 | OB/GYN Progress Note ---
OB-PP Progress Note - General PPD2 Maternal Group B Strep: Positive - Subjective Date: 01/10/18 Lochia: Moderate Pain: controlled Voiding: voiding Nausea or Vomiting Present: No - Objective Vital Signs: Last Vital Signs Temp 98.4 F 01/10/18 06:30 Pulse 63 01/10/18 06:30 Resp 16 01/10/18 06:30 BP 112/72 01/10/18 06:30 Pulse Ox 97 01/10/18 06:30 Urine Output: good General: alert and oriented Abdomen: fundus firm Extremities: non-tender - Assessment Assessment: , GBS positive - Plan Plan: routine care, discharge home
[2018-01-10 14:23] VITALS: BP 115/78; PULSE 75; O2SAT 99
== END 2018-01-10 14:33 | disposition home or self-care (01) | DRG 775 ==
LOC: OBOBS 09:17 → MC 09:22
PROVIDERS: ADMIT Obstetrics & Gynecology; ATTEND Obstetrics & Gynecology